=== PATIENT | female | born 1990 | race American Indian/Alaskan Native ===

== ENCOUNTER 2020-01-08 13:01 | Emergency (ER) | payer MEDICAID ==
[2020-01-08 13:22] VITALS: BP 121/52
--- NOTE | 2020-01-08 13:50 | Emergency Department Report ---
Blank Doc - Documentation Documentation: 29-year-old female that presents with left groin abscess. This initial assessment/diagnostic orders/clinical plan/treatment(s) is/are subject to change based on patient's health status, clinical progression and re- assessment by fellow clinical providers in the ED. Further treatment and workup at subsequent clinical providers discretion. Patient/guardians urged not to elope from the ED as their condition may be serious if not clinically assessed and managed. Initial orders include: 1- Patient sent to [facility] for further evaluation and treatment
[2020-01-08] MEDS ORDERED: LIDOCAINE (1%) 10 MG/1 ML VIAL 20 ML MDV INFILTRATI ONE (15:29)
--- NOTE | 2020-01-08 15:42 | Emergency Department Report ---
Abscess Boil HPI - HPI Chief Complaint: Skin/Abscess/Foreign Body Stated Complaint: PELVIC CYST Time Seen by Provider: 01/08/20 13:49 Duration: 1 Week Location: Lower Extremity Severity: Mild History: Yes Pain, No Fever, No Purulent Drainage, No Numbness, No Foreign Body, No Previous History, No Insect Bite HPI: abscess L groin x 1 week. no fevers. no other sx Home Medications: Previous Rx's Medication Instructions Recorded Last Taken Type Sulfamethoxazole/Trimethoprim 1 each PO BID #14 tablet 01/08/20 Unknown Rx [Bactrim DS TAB] Allergies/Adverse Reactions: Allergies Allergy/AdvReac Type Severity Reaction Status Date / Time No Known Allergies Allergy Unverified 01/08/20 13:20 ED Review of Systems ROS: Stated complaint: PELVIC CYST Other details as noted in HPI Comment: All other systems reviewed and negative ED Past Medical Hx - Past Medical History Previous Medical History?: No - Surgical History Additional Surgical History: hand - Social History Smoking Status: Never Smoker - Medications Home Medications: Home Medications Medication Instructions Recorded Confirmed Last Taken Type Sulfamethoxazole/Trimethoprim 1 each PO BID #14 tablet 01/08/20 Unknown Rx [Bactrim DS TAB] ED Abscess Boil Physical Exam - Exam General: Vital signs noted. No distress. Alert and acting appropriately. Size: 3 cm (fluctuance at L groin, mild surrounding erythema) Exam: Yes Tenderness, Yes Fluctuance, Yes Surrounding Cellulites/Erythema, Yes Normal Neurologic Exam, Yes Normal Circulation, No Lymphangitis, No Crepitation, No Heart Murmur I & D Note - I & D Note I & D Note: Area prepped and draped in the usual sterile fashion, area was anesthetized with 1% lidocaine, 2 cc. A small incision was made using an 11 blade scalpel, gentle pressure applied, a significant amount of purulent drainage was noted, minimal blood loss, patient tolerated procedure well. ED Course Vital Signs 01/08/20 13:19 Temperature 98.1 F Pulse Rate 85 Respiratory 18 Rate Blood Pressure 121/52 O2 Sat by Pulse 96 Oximetry Critical care attestation.: If time is entered above; I have spent that time in minutes in the direct care of this critically ill patient, excluding procedure time. ED Medical Decision Making - Medical Decision Making small abscess s/p I&D abx, pcp fu - Differential Diagnosis abscess, cellulitis ED Disposition Clinical Impression: Abscess Disposition: DC-01 TO HOME OR SELFCARE Is pt being admited?: No Condition: Good Instructions: Skin Abscess Prescriptions: Sulfamethoxazole/Trimethoprim [Bactrim DS TAB] 1 each PO BID #14 tablet Referrals: VIKRAM PLUMMER MD [Primary Care Provider] - 3-5 Days Time of Disposition: 15:41
== END 2020-01-08 16:00 | disposition home or self-care (01) ==
LOC: ED 13:01
DX: L02.214 Cutaneous abscess of groin (principal); Z79.899 Other long term (current) drug therapy
CPT/HCPCS: 99282

== ENCOUNTER 2021-05-14 20:57 | Emergency (ER) | payer MEDICAID ==
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
[2021-05-14] MEDS ORDERED: IBUPROFEN 600 MG TAB PO ONE (22:40)
[2021-05-14] MEDS ORDERED: traMADol 50 MG TAB PO ONE (22:40)
[2021-05-14] MEDS ORDERED: ONDANSETRON 4 MG ODT TAB PO ONE (22:40)
[2021-05-14 22:49] VITALS: BP 107/73
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
== END 2021-05-14 23:43 | disposition home or self-care (01) ==
LOC: ED 20:57
DX: S62.645A Nondisplaced fracture of proximal phalanx of left ring finger, initial encounter for closed fracture (principal); S63.501A Unspecified sprain of right wrist, initial encounter; S60.222A Contusion of left hand, initial encounter; Y08.89XA Assault by other specified means, initial encounter; Y93.89 Activity, other specified; Y92.89 Other specified places as the place of occurrence of the external cause; Y99.8 Other external cause status
CPT/HCPCS: 99283; J3490; Q0162